=== PATIENT | female | born 2000 | race African-American/Black ===

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

== ENCOUNTER 2019-03-21 01:39 | Emergency (ER) | payer SELFPAY ==
[2019-03-21] MEDS ORDERED: Ketorolac Tromethamine 60 MG/2 ML VIAL ONE (02:01)
== END 2019-03-21 02:37 | disposition home or self-care (01) ==
LOC: ERS 01:39
DX: S39.012A Strain of muscle, fascia and tendon of lower back, initial encounter (principal); W01.0XXA Fall on same level from slipping, tripping and stumbling without subsequent striking against object, initial encounter
CPT/HCPCS: 96372; 99283; J1885

== ENCOUNTER 2019-06-11 18:12 | Emergency (ER) | payer SELFPAY | END 2019-06-11 19:41 | disposition home or self-care (01) | LOC: ERS 18:12 | DX: G47.9 Sleep disorder, unspecified (principal) | CPT/HCPCS: 99283 ==

== ENCOUNTER 2019-07-30 15:29 | Emergency (ER) | payer BC, OTHER, SELFPAY ==
[2019-07-30] MEDS ORDERED: Ketorolac Tromethamine 30 MG/ML VIAL ONE (15:55)
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
== END 2019-07-30 16:15 | disposition home or self-care (01) ==
LOC: ERS 15:29
DX: M25.512 Pain in left shoulder (principal); Z79.899 Other long term (current) drug therapy; V89.2XXA Person injured in unspecified motor-vehicle accident, traffic, initial encounter
CPT/HCPCS: 96372; J1885

== ENCOUNTER 2021-04-30 01:24 | Emergency (ER) | payer MEDICAID, SELFPAY | END 2021-04-30 04:00 | disposition home or self-care (01) | LOC: ERS 01:24 | DX: M65.4 Radial styloid tenosynovitis [de Quervain] (principal); F17.290 Nicotine dependence, other tobacco product, uncomplicated | CPT/HCPCS: 29125 ==